=== PATIENT | female | born 1995 | race African-American/Black ===

== ENCOUNTER 2020-05-18 11:06 | Inpatient (IN) ==
[2020-05-18 11:57] LABS: Bilirubin,Urine Negative (Negative); Blood, Urine Negative (Negative); Glucose,Urine (UA) Negative (Negative); Ketones,Urine Negative (Negative); Mucus,Urine Many /LPF (Occasional); Nitrite,Urine Negative (Negative); Protein,Urine 100 MG/DL; RBC,Urine 2 /HPF (0-4); Squamous Epithelial Cell,Urine Moderate /HPF (0-10); Urine Appearance Slightly Hazy (Clear); Urine Color Amber (Yellow); WBC,Urine 3 /HPF (0-6)
[2020-05-18] MEDS ORDERED: LABETALOL 200 MG TABLET PO SCH (12:09)
[2020-05-18] MEDS ORDERED: hydrALAZINE 20 MG/1 ML VIAL ONE ×2 (12:13→13:31)
[2020-05-18] MEDS: hydrALAZINE 20 MG/1 ML VIAL IV PRN ×2 (12:24→12:48)
[2020-05-18] MEDS ORDERED: LACTATED RINGERS 1,000 ML IV SCH ×3 (12:30→15:30)
[2020-05-18 12:32] LABS: Basophils % 0.3 % (0.0-0.8); Eosinophils # 0.2 10*3/uL (0.0-0.87); Hemoglobin 9.4 GM/DL (12.0-16.0); Immature Granulocytes % 0.2 %; Immature Granulocytes Absolute 0.01 #; Lymphocytes # 1.7 10*3/uL (1.4-4.0); Lymphocytes % 28.6 % (21.3-54.2); Mean Corpuscular HGB Conc 31.3 GM/DL (32-36); Mean Corpuscular Volume 81.1 FL (87-102); Mean Platelet Volume 9.4 FL (9.6-12.0); Monocytes % 8.9 % (1.7-12.7); Platelet Count 335 T/CUMM (130-400); Red Cell Distribution Width 14.9 % (9.3-17.3); White Blood Count 5.8 T/CUMM (4-12)
[2020-05-18 12:52] LABS: PT Patient Result 10.3 SECS (9.8-11.9); Partial Thromboplastin Time 25.5 SECS (23.9-33.8)
[2020-05-18 13:00] LABS: Alanine Aminotransferase 15 U/L (13-56); Albumin 2.4 G/DL (3.4-5.0); Alkaline Phosphatase 115 U/L (45-117); Aspartate Amino Transferase 19 U/L (0-37); Bilirubin,Total < 0.39 MG/DL (0.2-1.0); Blood Urea Nitrogen 5 MG/DL (7-18); Calcium 8.4 MG/DL (8.5-10.1); Estimated Glom Filtration Rate 185 ML/MIN; Glucose 69 MG/DL (74-106); Osmolality,Calculated 269.7 MOS/KG (273-304); Total Protein 6.6 G/DL (6.4-8.3); Uric Acid 5.3 MG/DL (2.6-6.0)
[2020-05-18] MEDS ORDERED: hydrALAZINE 20 MG/1 ML VIAL IV ONE (13:30)
[2020-05-18] MEDS ORDERED: CITRIC ACID/SODIUM CITRATE 30 ML UDCUP PO ONE (13:48)
[2020-05-18] MEDS ORDERED: ceFAZolin 3,000 MG in SYRINGE 1 EACH IV ONE (13:48)
[2020-05-18] MEDS ORDERED: FAMOTIDINE 20 MG/2 ML VIAL IV ONE (13:48)
[2020-05-18] MEDS ORDERED: OXYTOCIN/LR 30 UNIT/1,000 ML BAG IV ONE (13:50)
[2020-05-18] MEDS ORDERED: OXYTOCIN 10 UNIT/ML VIAL IM ONE (13:50)
[2020-05-18] MEDS ORDERED: MAGNESIUM SULF RIDER 4 GM in PREMIX 1 EACH IV ONE (13:51)
[2020-05-18] MEDS ORDERED: miSOPROStoL 200 MCG TABLET ONE (13:59)
[2020-05-18] MEDS ORDERED: TRANEXAMIC ACID 1,000 MG/10 ML VIAL ONE (13:59)
[2020-05-18] MEDS ORDERED: METHYLERGONOVINE 0.2 MG/1 ML AMP ONE (13:59)
[2020-05-18] MEDS ORDERED: CARBOPROST TROMETHAMINE 250 MCG/ML AMP IM ONE (14:00)
[2020-05-18] MEDS ORDERED: BETAMETH SODIUM PHOS/ACETATE 30 MG/5 ML VIAL IM SCH (14:00)
[2020-05-18 14:56] LABS: Cord Arterial Blood HCO3 20.8 MMOL/L
[2020-05-18 14:59] LABS: Cord Venous Blood HCO3 21.9 MMOL/L; Cord Venous Blood PCO2 42.2 MMHG
[2020-05-18 15:01] LABS: Cord Venous Blood PO2 17.6
[2020-05-18 15:16] LABS: Bilirubin,Urine Negative (Negative); Blood, Urine Negative (Negative); Glucose,Urine (UA) Negative (Negative); Hyaline Casts,Urine 1 /LPF (0-3); Ketones,Urine 80 mg/dL (Negative); Mucus,Urine Many /LPF (Occasional); Nitrite,Urine Negative (Negative); Protein,Urine 100 MG/DL; RBC,Urine <1 /HPF (0-4); Squamous Epithelial Cell,Urine Occasional /HPF (0-10); Urine Appearance CLEAR (Clear); Urine Color Yellow (Yellow); Urine Specific Gravity 1.021 (1.001-1.035); Urine Urobilinogen < 2.0 EU/DL (0.2-1.0); WBC,Urine 1 /HPF (0-6)
[2020-05-18] MEDS ORDERED: SIMETHICONE CHEW 80 MG TABLET PO PRN (15:26)
[2020-05-18] MEDS ORDERED: RHO(D) IMMUNE GLOBULIN 300 MCG SYRINGE IM ONE (15:26)
[2020-05-18] MEDS ORDERED: MAGNESIUM HYDROXIDE SUSP 30 ML UDCUP PO PRN (15:26)
[2020-05-18] MEDS ORDERED: OXYTOCIN/LR 20 UNIT/1,000 ML BAG IV ONE (15:26)
[2020-05-18] MEDS ORDERED: ACETAMINOPHEN 325 MG TABLET PO PRN (15:26)
[2020-05-18] MEDS ORDERED: fentaNYL 100 MCG/2 ML VIAL ONE (15:27)
[2020-05-18] MEDS ORDERED: MIDAZOLAM 2 MG/2 ML VIAL ONE (15:27)
[2020-05-18] MEDS ORDERED: PHENYLEPHRINE 1 MG/10 ML SYRINGE IV ONE (15:27)
[2020-05-18] MEDS ORDERED: KETOROLAC 30 MG/1 ML VIAL ONE (15:28)
[2020-05-18] MEDS ORDERED: BUPIVACAINE SPINAL 0.75% 2 ML AMP SPINAL ONE (15:28)
[2020-05-18] MEDS ORDERED: MORPHINE 10 MG/10 ML VIAL ONE (15:28)
[2020-05-18] MEDS: MAGNESIUM SULF DRIP 40 GM/1,000 ML ML IV SCH (15:35)
[2020-05-18] MEDS ORDERED: HYDROmorphone 2 MG/1 ML VIAL IV ONE (16:08)
[2020-05-18] MEDS: ONDANSETRON 4 MG/2 ML VIAL IV PRN ×2 (16:20→21:40)
[2020-05-18] MEDS: ACETAMINOPHEN 500 MG TABLET PO SCH (18:00)
[2020-05-19] MEDS: ACETAMINOPHEN 500 MG TABLET PO SCH ×4 (00:23→18:39)
[2020-05-19] MEDS: KETOROLAC 30 MG/1 ML VIAL IV SCH ×3 (00:25→14:55)
[2020-05-19] MEDS: DOCUSATE SODIUM 100 MG CAPSULE PO SCH ×2 (08:13→21:21)
[2020-05-19] MEDS: MULTIVITAMIN (PRENATAL) TABLET PO SCH (08:13)
[2020-05-19] MEDS ORDERED: MAGNESIUM SULF DRIP 40 GM/1,000 ML ML IV ONE (10:03)
[2020-05-19] MEDS: MAGNESIUM SULF DRIP 40 GM/1,000 ML ML IV SCH (10:10)
[2020-05-19 12:03] LABS: Basophils % 0.1 % (0.0-0.8); Hematocrit 31.1 VOL% (35.7-47.0); Hemoglobin 9.8 GM/DL (12.0-16.0); Immature Granulocytes % 0.7 %; Immature Granulocytes Absolute 0.12 #; Lymphocytes # 1.6 10*3/uL (1.4-4.0); Lymphocytes % 8.9 % (21.3-54.2); Mean Corpuscular HGB Conc 31.5 GM/DL (32-36); Mean Corpuscular Volume 78.5 FL (87-102); Mean Platelet Volume 9.2 FL (9.6-12.0); Monocytes % 7.1 % (1.7-12.7); Neutrophils % 83.2 % (38.7-73.9); Platelet Count 378 T/CUMM (130-400); Red Blood Count 3.96 MC/CUMM (3.8-5.5); Red Cell Distribution Width 15.2 % (9.3-17.3); White Blood Count 17.6 T/CUMM (4-12)
[2020-05-20] MEDS: IBUPROFEN 800 MG TABLET PO PRN ×2 (05:53→18:08)
[2020-05-20] MEDS ORDERED: PROMETHAZINE 25 MG/1 ML VIAL IM PRN (07:58)
[2020-05-20] MEDS ORDERED: MEPERIDINE 50 MG/1 ML VIAL IM PRN (07:58)
[2020-05-20] MEDS ORDERED: PROMETHAZINE 25 MG/1 ML VIAL ONE (08:01)
[2020-05-20] MEDS: DOCUSATE SODIUM 100 MG CAPSULE PO SCH ×2 (09:48→21:06)
[2020-05-20] MEDS: MULTIVITAMIN (PRENATAL) TABLET PO SCH (09:49)
[2020-05-20] MEDS ORDERED: hydrALAZINE 20 MG/1 ML VIAL IV ONE ×2 (14:11→14:21)
[2020-05-21 07:50] VITALS: BP 162/106
[2020-05-21] MEDS: MULTIVITAMIN (PRENATAL) TABLET PO SCH (08:10)
[2020-05-21] MEDS: DOCUSATE SODIUM 100 MG CAPSULE PO SCH (08:11)
[2020-05-21] MEDS ORDERED: LABETALOL 200 MG TABLET PO SCH (09:18)
[2020-05-21] MEDS ORDERED: DIPH/TET/ACEL PERT BOOSTER VACCINE 0.5 ML VIAL IM ONE (09:44)
== END 2020-05-21 11:15 | disposition home or self-care (01) | DRG 540 ==
LOC: N.LDOUT 11:06 → N.LD 11:10 → N.OB 05-19 15:05
PROVIDERS: ADMIT Obstetrics & Gynecology; ATTEND Obstetrics & Gynecology
PROC: LDCSECT (ICD-10-PCS; 2020-05-18 14:30)

== ENCOUNTER 2020-06-03 10:20 | Observation (INO) ==
[2020-06-03] MEDS: LACTATED RINGERS 1,000 ML IV SCH ×2 (10:50→23:15)
[2020-06-03] MEDS ORDERED: MEPERIDINE 50 MG/1 ML VIAL IM ONE (10:59)
[2020-06-03] MEDS ORDERED: PROMETHAZINE 25 MG/1 ML VIAL IM ONE (10:59)
[2020-06-03] MEDS ORDERED: hydrALAZINE 20 MG/1 ML VIAL IV ONE (11:00)
[2020-06-03] MEDS: MEPERIDINE 50 MG/1 ML VIAL IV PRN ×2 (11:10→20:10)
[2020-06-03 11:18] LABS: Basophils % 0.6 % (0.0-0.8); Eosinophils # 0.2 10*3/uL (0.0-0.87); Eosinophils % 4.9 % (0.00-10.9); Hematocrit 31.5 VOL% (35.7-47.0); Hemoglobin 9.5 GM/DL (12.0-16.0); Immature Granulocytes % 0.2 %; Immature Granulocytes Absolute 0.01 #; Lymphocytes # 2.4 10*3/uL (1.4-4.0); Lymphocytes % 48.8 % (21.3-54.2); Mean Corpuscular HGB Conc 30.2 GM/DL (32-36); Mean Corpuscular Volume 82.9 FL (87-102); Mean Platelet Volume 8.9 FL (9.6-12.0); Monocytes % 10.2 % (1.7-12.7); Neutrophils % 35.3 % (38.7-73.9); Platelet Count 488 T/CUMM (130-400); Red Cell Distribution Width 15.6 % (9.3-17.3); White Blood Count 4.9 T/CUMM (4-12)
[2020-06-03 11:28] LABS: Bilirubin,Urine Negative (Negative); Blood, Urine Small mg/dL (Negative); Glucose,Urine (UA) Negative (Negative); Hyaline Casts,Urine 3 /LPF (0-3); Ketones,Urine Negative (Negative); Mucus,Urine Moderate /LPF (Occasional); Nitrite,Urine Negative (Negative); Protein,Urine 100 MG/DL; RBC,Urine 2 /HPF (0-4); Squamous Epithelial Cell,Urine Occasional /HPF (0-10); Urine Appearance Slightly Hazy (Clear); Urine Color Yellow (Yellow); Urine Specific Gravity 1.027 (1.001-1.035); WBC,Urine 4 /HPF (0-6)
[2020-06-03] MEDS ORDERED: ACETAMINOPHEN/CODEINE 300-30 MG TABLET PO PRN (11:33)
[2020-06-03 11:40] LABS: Anisocytosis 1+; Atypical Lymphocytes Few; Band Neutrophils 1 % (0-10); Eosinophils 6 % (0-10); Lymphocytes 52 % (20-55); Platelet Estimate Normal; Segmented Neutrophils 35 % (50-85); Total Cells Counted 100
[2020-06-03 11:41] LABS: Calcium 8.8 MG/DL (8.5-10.1); Hypochromasia Slight
[2020-06-03 11:42] LABS: Alanine Aminotransferase 49 U/L (13-56); Albumin 2.9 G/DL (3.4-5.0); Alkaline Phosphatase 87 U/L (45-117); Aspartate Amino Transferase 65 U/L (0-37); Bilirubin,Total < 0.39 MG/DL (0.2-1.0); Blood Urea Nitrogen 7 MG/DL (7-18); Estimated Glom Filtration Rate 147 ML/MIN; Glucose 71 MG/DL (74-106); Osmolality,Calculated 272.5 MOS/KG (273-304); Total Protein 7.7 G/DL (6.4-8.3)
[2020-06-03] MEDS ORDERED: hydrALAZINE 20 MG/1 ML VIAL IV PRN (14:45)
[2020-06-03] MEDS ORDERED: GLUCAGON 1 MG VIAL IM PRN (14:45)
[2020-06-03] MEDS ORDERED: DEXTROSE 50% 25 GM/50 ML VIAL IV PRN (14:45)
[2020-06-03] MEDS ORDERED: ONDANSETRON 4 MG/2 ML VIAL IV PRN (14:45)
[2020-06-03 15:46] LABS: Risk Ratio 3.28; Thyroid Stimulating Hormone 0.39 uIU/ml (0.358-3.74); VLDL CHOLESTEROL 19.8 MG/DL
[2020-06-03 17:02] LABS: PT Patient Result 10.9 SECS (9.8-11.9); Partial Thromboplastin Time 27.8 SECS (23.9-33.8)
[2020-06-03 17:19] LABS: CKMB % 0.7 %; Troponin I < 0.015 NG/ML (0.00-0.045)
[2020-06-03] MEDS: ACETAMINOPHEN/CODEINE 300-30 MG TABLET PO PRN (17:37)
[2020-06-03] MEDS: LABETALOL 100 MG TABLET PO SCH (20:10)
[2020-06-03] MEDS: PROMETHAZINE 25 MG TABLET PO PRN (20:10)
[2020-06-04 06:01] LABS: Basophils % 0.6 % (0.0-0.8); Eosinophils # 0.3 10*3/uL (0.0-0.87); Eosinophils % 6.5 % (0.00-10.9); Hematocrit 31.2 VOL% (35.7-47.0); Hemoglobin 9.4 GM/DL (12.0-16.0); Immature Granulocytes % 0.2 %; Immature Granulocytes Absolute 0.01 #; Lymphocytes # 2.5 10*3/uL (1.4-4.0); Lymphocytes % 50.7 % (21.3-54.2); Mean Corpuscular HGB Conc 30.1 GM/DL (32-36); Mean Corpuscular Volume 83.4 FL (87-102); Mean Platelet Volume 9.2 FL (9.6-12.0); Monocytes % 9.9 % (1.7-12.7); Neutrophils % 32.1 % (38.7-73.9); Platelet Count 491 T/CUMM (130-400); Red Blood Count 3.74 MC/CUMM (3.8-5.5); Red Cell Distribution Width 15.7 % (9.3-17.3); White Blood Count 4.9 T/CUMM (4-12)
[2020-06-04] MEDS: PROMETHAZINE 25 MG TABLET PO PRN (06:10)
[2020-06-04] MEDS: MEPERIDINE 50 MG/1 ML VIAL IV PRN (06:10)
[2020-06-04 06:30] LABS: Atypical Lymphocytes Few; Eosinophils 4 % (0-10); Hypochromasia 1+; Lymphocytes 50 % (20-55); Platelet Estimate Adequate; Segmented Neutrophils 42 % (50-85); Total Cells Counted 100
[2020-06-04 06:43] LABS: Calcium 8.5 MG/DL (8.5-10.1)
[2020-06-04 06:44] LABS: Osmolality,Calculated 275.5 MOS/KG (273-304)
[2020-06-04 06:54] LABS: Troponin I < 0.015 NG/ML (0.00-0.045)
[2020-06-04 07:41] LABS: Random Urine Protein (Bench) 51 MG/DL (<11.9)
[2020-06-04] MEDS ORDERED: HYDROmorphone 2 MG/1 ML VIAL IV PRN (08:33)
[2020-06-04] MEDS: DOCUSATE SODIUM 100 MG CAPSULE PO PRN (08:45)
[2020-06-04] MEDS: FOLIC ACID 1 MG TABLET PO SCH (08:45)
[2020-06-04] MEDS: LABETALOL 100 MG TABLET PO SCH ×2 (08:45→20:03)
[2020-06-04 10:38] LABS: Alanine Aminotransferase 40 U/L (13-56); Albumin 2.6 G/DL (3.4-5.0); Alkaline Phosphatase 84 U/L (45-117); Aspartate Amino Transferase 43 U/L (0-37); Bilirubin,Direct < 0.100 MG/DL (0.0-0.20); Bilirubin,Indirect 0.3 MG/DL (0.0-1.0); Bilirubin,Total < 0.39 MG/DL (0.2-1.0); Total Protein 7.2 G/DL (6.4-8.3)
[2020-06-04 12:39] LABS: Total Protein 24 Hr Ur Result 384 MG/24HR (0-149.1); Total Volume,Urine 3200 ML (400-2000)
[2020-06-04] MEDS: LACTATED RINGERS 1,000 ML IV SCH (13:46)
[2020-06-04] MEDS: BUTALBITAL/ACETAMIN/CAFFEINE 50-325-40 MG TABLET PO PRN ×2 (15:15→20:03)
[2020-06-04] MEDS: SERTRALINE 50 MG TABLET PO SCH (15:15)
[2020-06-04 16:56] LABS: Protein/Creatinine Ratio,Urine 0.1 RATIO
[2020-06-04 17:44] LABS: Calcium Urine Quant < 5.0 MG/DL; Calcium/Creatinine Ratio,Urine 0.1 RATIO (<2.0)
[2020-06-05] MEDS: ACETAMINOPHEN/CODEINE 300-30 MG TABLET PO PRN ×3 (04:36→23:23)
[2020-06-05] MEDS: LACTATED RINGERS 1,000 ML IV SCH ×2 (05:23→16:54)
[2020-06-05 06:10] LABS: Basophils % 0.8 % (0.0-0.8); Eosinophils # 0.3 10*3/uL (0.0-0.87); Eosinophils % 6.1 % (0.00-10.9); Hematocrit 32.3 VOL% (35.7-47.0); Hemoglobin 9.7 GM/DL (12.0-16.0); Immature Granulocytes % 0.2 %; Immature Granulocytes Absolute 0.01 #; Lymphocytes # 2.9 10*3/uL (1.4-4.0); Lymphocytes % 56.3 % (21.3-54.2); Mean Corpuscular Volume 82.6 FL (87-102); Mean Platelet Volume 8.9 FL (9.6-12.0); Monocytes % 6.9 % (1.7-12.7); Neutrophils % 29.7 % (38.7-73.9); Platelet Count 591 T/CUMM (130-400); Red Blood Count 3.91 MC/CUMM (3.8-5.5); Red Cell Distribution Width 15.6 % (9.3-17.3); White Blood Count 5.1 T/CUMM (4-12)
[2020-06-05 06:36] LABS: Calcium 8.8 MG/DL (8.5-10.1); Osmolality,Calculated 269.8 MOS/KG (273-304)
[2020-06-05 09:31] LABS: Anisocytosis 2+; Atypical Lymphocytes Few; Eosinophils 3 % (0-10); Hypochromasia 1+; Lymphocytes 44 % (20-55); Macrocytosis 1+; Polychromasia Slight; Segmented Neutrophils 41 % (50-85); Total Cells Counted 100
[2020-06-05 09:32] LABS: Microcytosis 2+; Ovalocytes Few; Platelet Estimate Increased; Stomatocytes Few
[2020-06-05] MEDS: SERTRALINE 50 MG TABLET PO SCH (09:49)
[2020-06-05] MEDS: FOLIC ACID 1 MG TABLET PO SCH (09:50)
[2020-06-05] MEDS: DOCUSATE SODIUM 100 MG CAPSULE PO PRN (09:50)
[2020-06-05] MEDS: LABETALOL 100 MG TABLET PO SCH ×2 (09:56→20:35)
[2020-06-05] MEDS: MEPERIDINE 50 MG/1 ML VIAL IV PRN (09:57)
[2020-06-05] MEDS ORDERED: PROMETHAZINE 25 MG TABLET PO PRN (18:29)
[2020-06-06] MEDS: FOLIC ACID 1 MG TABLET PO SCH (08:07)
[2020-06-06] MEDS: LABETALOL 100 MG TABLET PO SCH (08:07)
[2020-06-06] MEDS: SERTRALINE 50 MG TABLET PO SCH (08:08)
[2020-06-06] MEDS: ACETAMINOPHEN/CODEINE 300-30 MG TABLET PO PRN (08:09)
[2020-06-06 11:45] VITALS: BP 146/75
== END 2020-06-06 14:30 | disposition home or self-care (01) ==
LOC: PREOBSVTOIN 10:34 → INTOOBSV 10:35 → N.OB 10:35
PROVIDERS: ADMIT Obstetrics & Gynecology; ATTEND Obstetrics & Gynecology

== ENCOUNTER 2021-02-24 10:59 | Inpatient (IN) ==
[2021-02-24] MEDS ORDERED: BUTORPHANOL 1 MG/ML VIAL ONE (11:09)
[2021-02-24] MEDS ORDERED: ONDANSETRON 4 MG/2 ML VIAL ONE ×2 (11:09→14:07)
[2021-02-24] MEDS ORDERED: FAMOTIDINE 20 MG/2 ML VIAL IV ONE (11:10)
[2021-02-24] MEDS ORDERED: LACTATED RINGERS 1,000 ML IV PRN (11:10)
[2021-02-24] MEDS ORDERED: OXYTOCIN/LR 20 UNIT/1,000 ML BAG IV ONE ×2 (11:18→15:15)
[2021-02-24 11:43] LABS: Basophils # 0.1 10*3/uL (0.0-0.2); Basophils % 0.4 % (0.0-0.8); Eosinophils # 0.7 10*3/uL (0.0-0.87); Eosinophils % 3.4 % (0.00-10.9); Hematocrit 21.6 VOL% (35.7-47.0); Immature Granulocytes % 0.9 %; Immature Granulocytes Absolute 0.17 #; Lymphocytes # 2.2 10*3/uL (1.4-4.0); Lymphocytes % 11.4 % (21.3-54.2); Mean Corpuscular HGB Conc 32.4 GM/DL (32-36); Mean Corpuscular Volume 81.2 FL (87-102); Mean Platelet Volume 8.7 FL (9.6-12.0); Neutrophils % 78.9 % (38.7-73.9); Platelet Count 222 T/CUMM (130-400); Red Blood Count 2.66 MC/CUMM (3.8-5.5); Red Cell Distribution Width 12.6 % (9.3-17.3); White Blood Count 19.7 T/CUMM (4-12)
[2021-02-24 11:58] LABS: INR 1.2; PT Patient Result 12.8 SECS (10.5-12.0); Partial Thromboplastin Time 28.3 SECS (23.9-33.8)
[2021-02-24] MEDS ORDERED: MAGNESIUM SULF RIDER 4 GM/100 ML PREMIX IV ONE (12:00)
[2021-02-24] MEDS ORDERED: MAGNESIUM SULF DRIP 40 GM/1,000 ML ML IV SCH (12:00)
[2021-02-24 12:01] LABS: Bilirubin,Direct 0.16 MG/DL (0.0-0.20); Uric Acid 3.7 MG/DL (2.6-6.0)
[2021-02-24] MEDS ORDERED: MAGNESIUM SULF DRIP 40 GM/1,000 ML ML IV ONE (12:02)
[2021-02-24 12:05] LABS: Bilirubin,Total 0.5 MG/DL (0.2-1.0); Calcium 7.9 MG/DL (8.5-10.1); Osmolality,Calculated 277.4 MOS/KG (273-304); Total Protein 5.6 G/DL (6.4-8.2)
[2021-02-24] MEDS ORDERED: OXYTOCIN 10 UNIT/ML VIAL IM ONE (12:16)
[2021-02-24] MEDS ORDERED: OXYTOCIN/LR 30 UNIT/1,000 ML BAG IV ONE (12:16)
[2021-02-24] MEDS ORDERED: CITRIC ACID/SODIUM CITRATE 30 ML UDCUP ONE (12:16)
[2021-02-24] MEDS ORDERED: SODIUM CHLORIDE 0.9% 1,000 ML IV PRN ×3 (12:16→13:17)
[2021-02-24] MEDS ORDERED: fentaNYL 100 MCG/2 ML VIAL ONE (12:19)
[2021-02-24] MEDS ORDERED: PHENYLEPHRINE 10 MG/1 ML VIAL IV ONE (13:07)
[2021-02-24] MEDS ORDERED: DINOPROSTONE 10 MG VAG.INSERT VAG ONE (13:16)
[2021-02-24] MEDS ORDERED: NEOSTIGMINE 10 MG/10 ML VIAL ONE ×4 (13:36→14:07)
[2021-02-24] MEDS ORDERED: SODIUM CHLORIDE 0.9% 1,000 ML IV ONE (14:07)
[2021-02-24] MEDS ORDERED: propofoL 200 MG/20 ML VIAL IV ONE (14:07)
[2021-02-24] MEDS ORDERED: DEXAMETHASONE 4 MG/1 ML VIAL ONE (14:07)
[2021-02-24] MEDS ORDERED: ETOMIDATE 40 MG/20 ML VIAL IV ONE (14:07)
[2021-02-24] MEDS ORDERED: GLYCOPYRROLATE 0.4 MG/2 ML VIAL ONE (14:07)
[2021-02-24] MEDS ORDERED: SUCCINYLCHOLINE 200 MG/10 ML VIAL ONE (14:07)
[2021-02-24] MEDS ORDERED: PHENYLEPHRINE 1 MG/10 ML SYRINGE IV ONE (14:07)
[2021-02-24] MEDS ORDERED: ROCURONIUM 50 MG/5 ML VIAL IV ONE (14:07)
[2021-02-24] MEDS ORDERED: FUROSEMIDE 20 MG/2 ML VIAL ONE ×2 (14:07→17:27)
[2021-02-24 14:20] LABS: Bacteria,Urine Few /HPF (Few); Bilirubin,Urine Negative (Negative); Blood, Urine Small mg/dL (Negative); Glucose,Urine (UA) 50 mg/dL (Negative); Ketones,Urine Negative (Negative); Mucus,Urine Few /LPF (Occasional); Nitrite,Urine Negative (Negative); Protein,Urine 100 MG/DL; RBC,Urine 8 /HPF (0-4); Squamous Epithelial Cell,Urine Few /HPF (0-10); Urine Appearance CLOUDY (Clear); Urine Color Yellow (Yellow); Urine Specific Gravity 1.009 (1.001-1.035); Urine Urobilinogen < 2.0 EU/DL (0.2-1.0)
[2021-02-24 14:28] LABS: Barbiturates Screen,Urine Negative (Negative); Benzodiazepines Screen,Urine Negative (Negative); Cannabinoid Screen,Urine Negative (Negative); Opiate Screen,Urine Negative (Negative); Phencyclidine Screen,Urine Negative (Negative)
[2021-02-24] MEDS ORDERED: ONDANSETRON 4 MG/2 ML VIAL IV PRN ×2 (14:54→15:15)
[2021-02-24] MEDS ORDERED: hydrOXYzine HCL 25 MG/1 ML VIAL IM PRN (14:54)
[2021-02-24] MEDS ORDERED: diphenhydrAMINE 50 MG/1 ML VIAL IV PRN (14:54)
[2021-02-24] MEDS ORDERED: SODIUM CHLORIDE 0.9% 1,000 ML IV SCH (15:00)
[2021-02-24] MEDS: HYDROmorphone 2 MG/1 ML VIAL IV PRN ×4 (15:13→22:35)
[2021-02-24] MEDS ORDERED: RHO(D) IMMUNE GLOBULIN 300 MCG SYRINGE IM ONE (15:15)
[2021-02-24] MEDS ORDERED: ACETAMINOPHEN 325 MG TABLET PO PRN (15:15)
[2021-02-24] MEDS ORDERED: LACTATED RINGERS 1,000 ML IV SCH (15:30)
[2021-02-24] MEDS ORDERED: FUROSEMIDE 20 MG/2 ML VIAL IV ONE (17:15)
[2021-02-24] MEDS ORDERED: OXYTOCIN 10 UNIT/ML VIAL ONE (20:18)
[2021-02-24 21:00] LABS: Hematocrit 22.5 VOL% (35.7-47.0); Hemoglobin 7.2 GM/DL (12.0-16.0)
[2021-02-24] MEDS ORDERED: FUROSEMIDE 40 MG/4 ML VIAL IV ONE (21:00)
[2021-02-24] MEDS: DOCUSATE SODIUM 100 MG CAPSULE PO SCH (22:21)
[2021-02-25] MEDS ORDERED: diphenhydrAMINE 50 MG/1 ML VIAL ONE (00:21)
[2021-02-25] MEDS ORDERED: diphenhydrAMINE 50 MG/1 ML VIAL IV ONE (00:24)
[2021-02-25] MEDS: IBUPROFEN 800 MG TABLET PO PRN (06:09)
[2021-02-25] MEDS ORDERED: MEPERIDINE 50 MG/1 ML VIAL ONE (06:42)
[2021-02-25] MEDS: MEPERIDINE 50 MG/1 ML VIAL IV PRN ×4 (06:45→20:16)
[2021-02-25] MEDS ORDERED: SODIUM CHLORIDE 0.9% 1,000 ML IV PRN ×3 (06:47→09:12)
[2021-02-25] MEDS ORDERED: NIFEdipine 10 MG CAPSULE PO ONE (06:58)
[2021-02-25 08:56] LABS: Basophils % 0.1 % (0.0-0.8); Eosinophils # 0.1 10*3/uL (0.0-0.87); Eosinophils % 0.5 % (0.00-10.9); Immature Granulocytes % 0.5 %; Immature Granulocytes Absolute 0.06 #; Lymphocytes # 2.2 10*3/uL (1.4-4.0); Lymphocytes % 18.2 % (21.3-54.2); Mean Corpuscular HGB Conc 33.8 GM/DL (32-36); Mean Corpuscular Volume 82.1 FL (87-102); Mean Platelet Volume 9.2 FL (9.6-12.0); NRBC # 0.02 10*3/uL; Neutrophils % 68.7 % (38.7-73.9); Platelet Count 171 T/CUMM (130-400); Red Blood Count 1.73 MC/CUMM (3.8-5.5); Red Cell Distribution Width 14.1 % (9.3-17.3); White Blood Count 12.3 T/CUMM (4-12)
[2021-02-25 09:00] LABS: Hemoglobin 4.8 GM/DL (12.0-16.0)
[2021-02-25 09:01] LABS: Hematocrit 14.2 VOL% (35.7-47.0)
[2021-02-25] MEDS: MULTIVITAMIN (PRENATAL) TABLET PO SCH (09:31)
[2021-02-25] MEDS: DOCUSATE SODIUM 100 MG CAPSULE PO SCH ×2 (09:31→21:13)
[2021-02-25] MEDS: PROMETHAZINE 25 MG/1 ML VIAL IM PRN ×3 (10:01→19:25)
[2021-02-25 18:45] LABS: Basophils % 0.3 % (0.0-0.8); Eosinophils # 0.2 10*3/uL (0.0-0.87); Eosinophils % 1.5 % (0.00-10.9); Hematocrit 19.7 VOL% (35.7-47.0); Hemoglobin 6.5 GM/DL (12.0-16.0); Immature Granulocytes % 0.6 %; Immature Granulocytes Absolute 0.06 #; Lymphocytes # 2.5 10*3/uL (1.4-4.0); Lymphocytes % 24.1 % (21.3-54.2); Mean Corpuscular Volume 84.5 FL (87-102); Monocytes % 10.3 % (1.7-12.7); Neutrophils % 63.2 % (38.7-73.9); Platelet Count 150 T/CUMM (130-400); Red Blood Count 2.33 MC/CUMM (3.8-5.5); Red Cell Distribution Width 14.5 % (9.3-17.3); White Blood Count 10.4 T/CUMM (4-12)
[2021-02-25] MEDS ORDERED: LACTATED RINGERS 1,000 ML IV SCH (20:30)
[2021-02-26] MEDS: MEPERIDINE 50 MG/1 ML VIAL IV PRN ×2 (00:24→04:48)
[2021-02-26 00:56] LABS: Basophils % 0.3 % (0.0-0.8); Eosinophils # 0.2 10*3/uL (0.0-0.87); Hematocrit 24.7 VOL% (35.7-47.0); Hemoglobin 8.1 GM/DL (12.0-16.0); Immature Granulocytes % 0.5 %; Immature Granulocytes Absolute 0.05 #; Lymphocytes # 2.8 10*3/uL (1.4-4.0); Lymphocytes % 27.5 % (21.3-54.2); Mean Corpuscular HGB Conc 32.8 GM/DL (32-36); Mean Corpuscular Volume 83.4 FL (87-102); Mean Platelet Volume 9.2 FL (9.6-12.0); Monocytes % 9.9 % (1.7-12.7); Neutrophils % 59.8 % (38.7-73.9); Platelet Count 154 T/CUMM (130-400); Red Blood Count 2.96 MC/CUMM (3.8-5.5); Red Cell Distribution Width 14.8 % (9.3-17.3); White Blood Count 10.2 T/CUMM (4-12)
[2021-02-26] MEDS ORDERED: FUROSEMIDE 40 MG/4 ML VIAL IV ONE (01:30)
[2021-02-26] MEDS: FERROUS SULFATE 325 MG TABLET PO SCH ×3 (02:30→21:17)
[2021-02-26] MEDS: PROMETHAZINE 25 MG/1 ML VIAL IM PRN (04:48)
[2021-02-26] MEDS: MULTIVITAMIN (PRENATAL) TABLET PO SCH (08:49)
[2021-02-26] MEDS: DOCUSATE SODIUM 100 MG CAPSULE PO SCH ×2 (08:49→21:17)
[2021-02-26 12:24] LABS: Basophils # 0.1 10*3/uL (0.0-0.2); Basophils % 0.5 % (0.0-0.8); Eosinophils # 0.5 10*3/uL (0.0-0.87); Eosinophils % 3.9 % (0.00-10.9); Hematocrit 28.6 VOL% (35.7-47.0); Hemoglobin 9.4 GM/DL (12.0-16.0); Immature Granulocytes % 0.7 %; Immature Granulocytes Absolute 0.09 #; Lymphocytes # 2.9 10*3/uL (1.4-4.0); Lymphocytes % 22.1 % (21.3-54.2); Mean Corpuscular HGB Conc 32.9 GM/DL (32-36); Mean Corpuscular Volume 83.9 FL (87-102); Mean Platelet Volume 9.1 FL (9.6-12.0); Monocytes % 10.1 % (1.7-12.7); NRBC # 0.03 10*3/uL; Neutrophils % 62.7 % (38.7-73.9); Platelet Count 213 T/CUMM (130-400); Red Blood Count 3.41 MC/CUMM (3.8-5.5); Red Cell Distribution Width 14.6 % (9.3-17.3); White Blood Count 13.1 T/CUMM (4-12)
[2021-02-26] MEDS: MAGNESIUM HYDROXIDE SUSP 30 ML UDCUP PO PRN (21:17)
[2021-02-26] MEDS: LORazepam 1 MG TABLET PO PRN (23:09)
[2021-02-27 06:31] LABS: Basophils % 0.4 % (0.0-0.8); Eosinophils # 0.7 10*3/uL (0.0-0.87); Eosinophils % 6.8 % (0.00-10.9); Hematocrit 26.3 VOL% (35.7-47.0); Hemoglobin 8.7 GM/DL (12.0-16.0); Immature Granulocytes % 0.9 %; Immature Granulocytes Absolute 0.09 #; Lymphocytes # 2.2 10*3/uL (1.4-4.0); Lymphocytes % 21.2 % (21.3-54.2); Mean Corpuscular HGB Conc 33.1 GM/DL (32-36); Mean Corpuscular Volume 83.8 FL (87-102); Monocytes % 10.7 % (1.7-12.7); NRBC # 0.02 10*3/uL; Platelet Count 199 T/CUMM (130-400); Red Blood Count 3.14 MC/CUMM (3.8-5.5); Red Cell Distribution Width 14.6 % (9.3-17.3); White Blood Count 10.1 T/CUMM (4-12)
[2021-02-27] MEDS ORDERED: POTASSIUM CHLORIDE 20 MEQ TABLET PO PRN (07:07)
[2021-02-27] MEDS: IBUPROFEN 800 MG TABLET PO PRN ×2 (07:56→18:02)
[2021-02-27] MEDS: SIMETHICONE CHEW 80 MG TABLET PO PRN (07:57)
[2021-02-27] MEDS: MAGNESIUM HYDROXIDE SUSP 30 ML UDCUP PO PRN (07:57)
[2021-02-27] MEDS: FERROUS SULFATE 325 MG TABLET PO SCH ×2 (08:02→20:06)
[2021-02-27] MEDS: DOCUSATE SODIUM 100 MG CAPSULE PO SCH ×2 (08:02→20:06)
[2021-02-27] MEDS: MULTIVITAMIN (PRENATAL) TABLET PO SCH (08:02)
[2021-02-27] MEDS: POTASSIUM CHLORIDE 20 MEQ/15 ML UDCUP PO PRN ×3 (12:14→16:34)
[2021-02-27] MEDS: LORazepam 1 MG TABLET PO PRN ×2 (13:58→22:13)
[2021-02-27] MEDS ORDERED: ONDANSETRON 4 MG TABLET PO PRN (17:47)
[2021-02-27] MEDS: PANTOPRAZOLE 40 MG TABLET PO SCH ×2 (18:02→20:06)
[2021-02-28] MEDS: POTASSIUM CHLORIDE 20 MEQ/15 ML UDCUP PO PRN ×2 (03:15→05:25)
[2021-02-28] MEDS: FERROUS SULFATE 325 MG TABLET PO SCH ×2 (08:10→20:34)
[2021-02-28] MEDS: LORazepam 1 MG TABLET PO PRN ×2 (08:10→21:55)
[2021-02-28] MEDS: PANTOPRAZOLE 40 MG TABLET PO SCH ×2 (08:10→20:34)
[2021-02-28] MEDS: DOCUSATE SODIUM 100 MG CAPSULE PO SCH ×2 (08:10→20:33)
[2021-02-28] MEDS ORDERED: NIFEdipine 10 MG CAPSULE PO ONE ×3 (09:18→19:00)
[2021-02-28] MEDS: SERTRALINE 50 MG TABLET PO SCH (10:50)
[2021-02-28] MEDS: MEPERIDINE 50 MG/1 ML VIAL IV PRN (20:26)
[2021-02-28] MEDS: PROMETHAZINE 25 MG/1 ML VIAL IM PRN (20:26)
[2021-02-28] MEDS: SIMETHICONE CHEW 80 MG TABLET PO PRN (20:34)
[2021-02-28] MEDS: oxyCODONE/ACETAMINOPHEN 5-325 MG TABLET PO PRN (23:17)
[2021-03-01] MEDS: oxyCODONE/ACETAMINOPHEN 5-325 MG TABLET PO PRN ×2 (04:46→10:16)
[2021-03-01] MEDS: FERROUS SULFATE 325 MG TABLET PO SCH (09:02)
[2021-03-01] MEDS: DOCUSATE SODIUM 100 MG CAPSULE PO SCH (09:03)
[2021-03-01] MEDS: PANTOPRAZOLE 40 MG TABLET PO SCH (09:03)
[2021-03-01] MEDS: SERTRALINE 50 MG TABLET PO SCH (09:03)
[2021-03-01] MEDS: MULTIVITAMIN (PRENATAL) TABLET PO SCH ×2 (09:04→09:05)
[2021-03-01] MEDS: IBUPROFEN 800 MG TABLET PO PRN (13:53)
[2021-03-01 15:33] VITALS: BP 131/80
== END 2021-03-01 16:15 | disposition home or self-care (01) | DRG 540 ==
LOC: N.LDOUT 10:59 → N.LD 11:02 → N.OB 02-26 19:45
PROVIDERS: ADMIT Obstetrics & Gynecology; ATTEND Obstetrics & Gynecology
PROC: LDCSECT (ICD-10-PCS; 2021-02-24 12:00)